=== PATIENT | female | born 1975 | race Caucasian/White ===

== ENCOUNTER 2019-06-12 23:23 | Observation (INO) ==
[2019-06-13] MEDS ORDERED: Naloxone 0.4 MG/ML INJ IVP PRN ×2 (07:53→13:27)
[2019-06-13] MEDS ORDERED: Ketorolac 30 MG/ML VIAL IVP PRN ×2 (08:02→13:27)
[2019-06-13] MEDS ORDERED: Ondansetron 4 MG/2 ML VIAL IVP PRN ×2 (08:02→13:27)
[2019-06-13 08:26] LABS: Basophils % 0.2 %; Eosinophils # 0.1 K/mcL (0.0-0.6); Eosinophils % 1.1 %; Hemoglobin 12.1 g/dL (11.5-15.4); Immature Granulocytes % 0.4 % (0-4); Lymphocytes # 1.4 K/mcL (0.6-4.6); Lymphocytes % 24.2 %; Mean Corpuscular HGB Conc 35.6 g/dL (31.6-35.5); Mean Corpuscular Hemoglobin 32.1 pg (28.0-33.3); Mean Corpuscular Volume 90.2 fL (83.0-100.0); Mean Platelet Volume 8.8 fL (9.4-12.4); Monocytes # 0.7 K/mcL (0.0-1.3); Monocytes % 12.6 %; Neutrophils # 3.5 K/mcL (1.6-8.9); Platelet Count 284 K/mcL (140-400); Red Blood Count 3.77 M/mcL (3.82-4.97); Red Cell Distribution Width 12.5 % (11.5-14.5); Segmented Neutrophils % 61.5 %; White Blood Count 5.6 K/mcL (4.3-11.1)
[2019-06-13 08:28] LABS: Prothrombin Time 11.5 Seconds (9.4-12.1)
[2019-06-13] MEDS ORDERED: 0.9 % Sodium Chloride 1,000 ML IVC SCH ×2 (08:30→13:27)
[2019-06-13 08:48] LABS: BUN/Creatinine Ratio 11 (6-26); Blood Urea Nitrogen 12 mg/dL (6-20); Calcium 8.5 mg/dL (8.6-10.3); Carbon Dioxide 25 mEq/L (23-29); Chloride 107 mEq/L (98-107); Glucose 93 mg/dL (70-105); Osmolality,Calculated 287 (280-300); Potassium 3.7 mEq/L (3.5-5.1); Sodium 139 mEq/L (136-145); eGFR For African Americans > 60 (> 60); eGFR For Non-African Americans 55 (> 60)
[2019-06-13 09:08] LABS: Bilirubin,Urine Small (Negative); Blood,Urine Small (Negative); Glucose,Urine (UA) Normal (Normal); Ketones,Urine 15 mg/dL (Negative); Leukocyte Esterase,Urine Small (Negative); Nitrite,Urine Positive (Negative); Protein,Urine 30 mg/dL (Neg-Trace); Specific Gravity,Urine 1.028 (1.010-1.025)
[2019-06-13 09:10] LABS: Bacteria,Urine None Seen per hpf (None-Few); Hyaline Casts,Urine None Seen per lpf (None-Few); RBC,Urine 30-50 per hpf (0-3); Squamous Epithelial Cell,Urine Many per lpf (None-Few)
[2019-06-13 09:14] LABS: Clarity,Urine Clear (Clear); Color,Urine Orange (Yellow)
[2019-06-13] MEDS ORDERED: Dexamethasone 4 MG/ML VIAL ONE (10:22)
[2019-06-13] MEDS ORDERED: *HR* FentaNYL (PF) 100 MCG/2 ML VIAL ONE (10:22)
[2019-06-13] MEDS ORDERED: Lidocaine -MPF 2% 2 ML VIAL ONE (10:22)
[2019-06-13] MEDS ORDERED: *HR* Succinylcholine 200 MG/10 ML VIAL IVP ONE (10:22)
[2019-06-13] MEDS ORDERED: Ondansetron 4 MG/2 ML VIAL ONE (10:22)
[2019-06-13] MEDS ORDERED: *HR* Midazolam HCl 2 MG/2 ML VIAL ONE (10:22)
[2019-06-13] MEDS ORDERED: *HR* Propofol 200 MG/20 ML VIAL IVP ONE (10:22)
[2019-06-13] MEDS ORDERED: Isovue-300 50ML VIAL ONE (11:50)
[2019-06-14] MEDS ORDERED: Levothyroxine 25 MCG TABLET PO SCH (06:30)
[2019-06-14 07:42] LABS: Basophils % 0.1 %; Hematocrit 34.2 % (35.3-44.9); Hemoglobin 11.5 g/dL (11.5-15.4); Immature Granulocytes % 0.3 % (0-4); Lymphocytes # 1.2 K/mcL (0.6-4.6); Lymphocytes % 12.1 %; Mean Corpuscular HGB Conc 33.6 g/dL (31.6-35.5); Mean Corpuscular Hemoglobin 31.4 pg (28.0-33.3); Mean Corpuscular Volume 93.4 fL (83.0-100.0); Mean Platelet Volume 9.3 fL (9.4-12.4); Monocytes # 0.6 K/mcL (0.0-1.3); Monocytes % 5.8 %; Neutrophils # 8.2 K/mcL (1.6-8.9); Platelet Count 327 K/mcL (140-400); Red Blood Count 3.66 M/mcL (3.82-4.97); Red Cell Distribution Width 12.5 % (11.5-14.5); Segmented Neutrophils % 81.7 %
[2019-06-14 08:20] VITALS: BP 126/69
[2019-06-14 08:30] LABS: BUN/Creatinine Ratio 12 (6-26); Blood Urea Nitrogen 11 mg/dL (6-20); Calcium 8.2 mg/dL (8.6-10.3); Carbon Dioxide 23 mEq/L (23-29); Chloride 111 mEq/L (98-107); Glucose 142 mg/dL (70-105); Osmolality,Calculated 296 (280-300); Potassium 4.3 mEq/L (3.5-5.1); Sodium 142 mEq/L (136-145); eGFR For African Americans > 60 (> 60); eGFR For Non-African Americans > 60 (> 60)
[2019-06-14] MEDS ORDERED: NORETHINDRONE ETHINYL ESTRAD PO SCH (09:00)
[2019-06-14] MEDS ORDERED: cefTRIAXone 1,000 MG in Water for inj. (sterile) 10 ML IVP SCH (09:00)
[2019-06-19 10:51] LABS: Calculi Mass 37 mg
== END 2019-06-14 11:44 | disposition home or self-care (01) ==
LOC: 3ANU → SUATTDRO 06-13 07:18
PROVIDERS: ADMIT Internal Medicine; ATTEND Internal Medicine